=== PATIENT | female | born 1955 | race Caucasian/White ===

== ENCOUNTER 2018-03-04 23:03 | Emergency (ER) | payer BC ==
[2018-03-04 23:17] VITALS: RESP 18
[2018-03-04] MEDS ORDERED: SODIUM CHLORIDE 0.9% 1,000 ML IV STA ×2 (23:54)
[2018-03-04] MEDS ORDERED: MORPHINE SULFATE 2 MG/ML SYRINGE IV STA (23:54)
[2018-03-04] MEDS ORDERED: ONDANSETRON 4 MG/2 ML VIAL IVP STA (23:54)
[2018-03-05 00:15] LABS: HCT 46.3 % (34.0-46.0); HGB 16.2 gm/dL (11.4-16.0); MCH 33.2 pg (25.0-35.0); Mean Platelet Volume 6.6; Platelet Count 302 k/uL (150-450); RBC 4.87 m/uL (3.80-5.40); WBC 15.8 k/uL (3.8-10.6)
[2018-03-05 00:23] LABS: ALT 38 U/L (9-52); AST 37 U/L (14-36); Albumin 5.6 g/dL (3.5-5.0); Alkaline Phosphatase 62 U/L (38-126); Amylase 53 U/L (30-110); Anion Gap 18 mmol/L; Blood Urea Nitrogen 19 mg/dL (7-17); Carbon Dioxide 25 mmol/L (22-30); Chloride 97 mmol/L (98-107); Glucose 141 mg/dL (74-99); Lipase 58 U/L (23-300); Potassium 3.9 mmol/L (3.5-5.1); Sodium 140 mmol/L (137-145); Total Protein 8.1 g/dL (6.3-8.2)
--- NOTE | 2018-03-05 00:24 | XR ---
EXAMINATION TYPE: XR KUB DATE OF EXAM: 03/05/2018 COMPARISON: NONE HISTORY: Abdominal pain TECHNIQUE: 2 views FINDINGS: There is no sign of intestinal obstruction or pneumoperitoneum. Fecal pattern is normal. Th ere is no evidence of a mass. There are no pathologic calcifications over the kidneys. Lung bases are clear. There is mild lumbar dextroscoliosis. IMPRESSION: Nonacute abdomen.
[2018-03-05 00:44] LABS: Eosinophils # (M) 0.16 k/uL (0-0.7); Lymphocytes # (M) 0.95 k/uL (1.0-4.8); Neutrophils # (M) 14.69 k/uL (1.3-7.7); Neutrophils % (M) 93 %; Nucleated Red Blood Cells 0 /100 WBC (0-0); Reactive Lymphocytes Present; Total Cells Counted 100
[2018-03-05 01:15] LABS: Amorphous Sediment,Urine Moderate /hpf; Appearance,Urine Cloudy (Clear); Bilirubin,Urine Negative (Negative); Blood,Urine Negative (Negative); Color,Urine Yellow; Glucose,Urine (UA) Negative (Negative); Ketones,Urine 2+ (Negative); Leukocyte Esterase,Urine Moderate (Negative); Mucus,Urine Rare /hpf; Nitrite,Urine Negative (Negative); PH, Urine 7.5 (5.0-8.0); Protein,Urine Trace (Negative); RBC,Urine 11 /hpf (0-5); Specific Gravity,Urine 1.019 (1.001-1.035); Squamous Epithelial Cell,Urine <1 /hpf (0-4); Urobilinogen,Urine <2.0 mg/dL (<2.0); WBC,Urine 4 /hpf (0-5)
[2018-03-05] MEDS ORDERED: ONDANSETRON 4 MG ODT STARTER PACK 2 TAB BTL PO STA (01:44)
--- NOTE | 2018-03-05 01:46 | ED ---
Nausea/Vomiting/Diarrhea HPI - General Chief complaint: Nausea/Vomiting/Diarrhea Stated complaint: vomiting Time Seen by Provider: 03/04/18 23:31 Source: patient, RN notes reviewed, old records reviewed Mode of arrival: ambulatory Limitations: no limitations - History of Present Illness Initial comments: Patient is a 62 year old female with CC of Nausea Vomiting, and cramping abdominal pain for 6 hours prior to arrival. She reports that she ate dinner and was having a mild upset stomach at that time. Patient reports she has had an episode like this once before and her food did not agree with her. Patient states that she has no back pain, chest pain, shortness of breath. Denies hemataemisis. - Related Data Home Medications Medication Instructions Recorded Confirmed Anastrozole [Arimidex] 1 mg PO DAILY 03/04/18 03/04/18 Aspirin 81 mg PO DAILY 03/04/18 03/04/18 Atorvastatin [Lipitor] 10 mg PO DAILY 03/04/18 03/04/18 Calcium Carbonate/Vitamin D3 1 tab PO DAILY 03/04/18 03/04/18 [Calcium 500-Vit D3 200 Tablet] Glucosamine Sulfate 500 mg PO DAILY 03/04/18 03/04/18 Multivitamins, Thera [Multivitamin 1 tab PO DAILY 03/04/18 03/04/18 (formulary)] Previous Rx's Medication Instructions Recorded Ondansetron Odt [Zofran Odt] 4 mg PO Q8HR PRN #12 tab 03/05/18 Allergies Allergy/AdvReac Type Severity Reaction Status Date / Time naproxen [From Naprosyn] Allergy Rash/Hives Verified 03/04/18 23:31 Review of Systems ROS Statement: Those systems with pertinent positive or pertinent negative responses have been documented in the HPI. ROS Other: All systems not noted in ROS Statement are negative. Past Medical History Past Medical History: Cancer, Hyperlipidemia Additional Past Medical History / Comment(s): breast History of Any Multi-Drug Resistant Organisms: None Reported Additional Past Surgical History / Comment(s): lumpectomy Past Psychological History: No Psychological Hx Reported Smoking Status: Never smoker Past Alcohol Use History: Occasional Past Drug Use History: None Reported General Exam - General Exam Comments Initial Comments: This patient is a 62 year old female, mild discomfort and vomiting. Limitations: no limitations General appearance: alert, in no apparent distress Head exam: Present: atraumatic, normocephalic, normal inspection Eye exam: Present: normal appearance, PERRL, EOMI. Absent: scleral icterus, conjunctival injection, periorbital swelling ENT exam: Present: normal exam, mucous membranes moist Neck exam: Present: normal inspection. Absent: tenderness, meningismus, lymphadenopathy Respiratory exam: Present: normal lung sounds bilaterally. Absent: respiratory distress, wheezes, rales, rhonchi, stridor Cardiovascular Exam: Present: regular rate, normal rhythm, normal heart sounds. Absent: systolic murmur, diastolic murmur, rubs, gallop, clicks GI/Abdominal exam: Present: soft, tenderness (mild tenderness diffuse through abdomen. ), normal bowel sounds. Absent: distended, guarding, rebound, rigid Extremities exam: Present: normal inspection, full ROM, normal capillary refill. Absent: tenderness, pedal edema, joint swelling, calf tenderness Back exam: Present: normal inspection Neurological exam: Present: alert, oriented X3, CN II-XII intact Psychiatric exam: Present: normal affect, normal mood Skin exam: Present: warm, dry, intact, normal color. Absent: rash Course Vital Signs 03/04/18 03/05/18 03/05/18 23:12 00:45 01:54 Temperature 98.1 F 98.6 F Pulse Rate 96 91 88 Respiratory 18 18 18 Rate Blood Pressure 125/86 130/70 135/72 O2 Sat by Pulse 100 97 99 Oximetry Medical Decision Making - Medical Decision Making Patient is a 62 year old female with sudden onset of vomiting and nausea and cramping abdominal pain. Patient had mild diffuse cramping, no focal tenderness or rebound. Patient given IV fluids, zofran and pain medication. Patient was reevaluated and informed of results. She reports she felt much better and would like to go home. Patient was reexamined and had no tenderness. Patient was offered further evaluation of leukocytosis, and CT scan. Patient informed of hematuria, and she informs me she completed culposcoy procedure one week ago, and has been having minor spotting. Again no back pain,or tenderness. She states she would like to forgo this. Discussed leukocytosis is likely from vomiting as well. Discussed return parameters. Patient agrees to treatment plan and will comply. - Lab Data Result diagrams: 03/04/18 23:55 03/04/18 23:55 Lab Results 03/04/18 03/04/18 03/05/18 Range/Units 23:55 23:55 00:55 WBC 15.8 H (3.8-10.6) k/uL RBC 4.87 (3.80-5.40) m/uL Hgb 16.2 H (11.4-16.0) gm/dL Hct 46.3 H (34.0-46.0) % MCV 95.0 (80.0-100.0) fL MCH 33.2 (25.0-35.0) pg MCHC 35.0 (31.0-37.0) g/dL RDW 12.0 (11.5-15.5) % Plt Count 302 (150-450) k/uL Neutrophils % (Manual) 93 % Lymphocytes % (Manual) 6 % Eosinophils % (Manual) 1 % Neutrophils # (Manual) 14.69 H (1.3-7.7) k/uL Lymphocytes # (Manual) 0.95 L (1.0-4.8) k/uL Eosinophils # (Manual) 0.16 (0-0.7) k/uL Nucleated RBCs 0 (0-0) /100 WBC Manual Slide Review Performed Reactive Lymphocytes Present Sodium 140 (137-145) mmol/L Potassium 3.9 (3.5-5.1) mmol/L Chloride 97 L (98-107) mmol/L Carbon Dioxide 25 (22-30) mmol/L Anion Gap 18 mmol/L BUN 19 H (7-17) mg/dL Creatinine 0.70 (0.52-1.04) mg/dL Est GFR (CKD-EPI)AfAm >90 (>60 ml/min/1.73 sqM) Est GFR (CKD-EPI)NonAf >90 (>60 ml/min/1.73 sqM) Glucose 141 H (74-99) mg/dL Calcium 11.0 H (8.4-10.2) mg/dL Total Bilirubin 1.0 (0.2-1.3) mg/dL AST 37 H (14-36) U/L ALT 38 (9-52) U/L Alkaline Phosphatase 62 (38-126) U/L Total Protein 8.1 (6.3-8.2) g/dL Albumin 5.6 H (3.5-5.0) g/dL Amylase 53 (30-110) U/L Lipase 58 (23-300) U/L Urine Color Yellow Urine Appearance Cloudy H (Clear) Urine pH 7.5 (5.0-8.0) Ur Specific [place] 1.019 (1.001-1.035) Urine Protein Trace H (Negative) Urine Glucose (UA) Negative (Negative) Urine Ketones 2+ H (Negative) Urine Blood Negative (Negative) Urine Nitrite Negative (Negative) Urine Bilirubin Negative (Negative) Urine Urobilinogen <2.0 (<2.0) mg/dL Ur Leukocyte Esterase Moderate H (Negative) Urine RBC 11 H (0-5) /hpf Urine WBC 4 (0-5) /hpf Ur Squamous Epith Cells <1 (0-4) /hpf Amorphous Sediment Moderate H (None) /hpf Urine Mucus Rare H (None) /hpf - Radiology Data Radiology results: report reviewed KUB shows non obstructive bowel obstruction. Disposition Clinical Impression: Nausea & vomiting Disposition: HOME SELF-CARE Condition: Good Instructions: Acute Nausea and Vomiting (ED) Additional Instructions: Patient has follow-up with primary care provider. Return to emergency department if any alarming signs or symptoms occur. Prescriptions: Ondansetron Odt [Zofran Odt] 4 mg PO Q8HR PRN #12 tab PRN Reason: Nausea Is patient prescribed a controlled substance at d/c from ED?: No When asked, does pt state using other controlled substances?: No If prescribed controlled substance>3 days was MAPS reviewed?: No If opioid is for acute pain is fill amount 7 days or less?: No If Rx opioid, was Start Talking consent form obtained?: No Referrals: Ruben Nolan MD [Primary Care Provider] - 1-2 days Time of Disposition: 01:43
[2018-03-05 01:55] VITALS: BP 135/72; PULSE 88; TEMP 98.6
== END 2018-03-05 02:07 | disposition home or self-care (01) ==
LOC: EC 23:03
DX: R11.2 Nausea with vomiting, unspecified (principal); R10.84 Generalized abdominal pain; E78.5 Hyperlipidemia, unspecified; Z85.3 Personal history of malignant neoplasm of breast; Z79.82 Long term (current) use of aspirin; Z79.899 Other long term (current) drug therapy; Z88.6 Allergy status to analgesic agent
CPT/HCPCS: 36415; 80053; 82150; 83690; 85025; 81001; 74018; 99284; 96374; 96375; 96361 ×2; J2405; J2270